=== PATIENT | female | born 1970 | race Caucasian/White ===

== ENCOUNTER 2018-01-09 14:30 | Outpatient (RCR) | payer OTHER, SELFPAY ==
--- NOTE | 2017-12-18 14:30 | PT.OPPOC ---
Current Diagnoses Pain in right knee (12/18/17) Stiffness of right knee, not elsewhere classified (12/18/17) Other abnormalities of gait and mobility (12/18/17) Other tear of lateral meniscus, current injury, right knee, subsequent encounter (12/18/17) Other tear of lateral meniscus, current injury, left knee, initial encounter (12/18/17) Provider Visit Care Team Role Provider Type PHANI Soliz Family Provider Advanced Phlebotomist Medical Lab Assistant Primary Care Provider Specialty: Family Practice Address: [address] [place] [address], [id number] Email: [email or web address] Kevin Fletcher MD Attending Provider Physician Specialty: Orthopedic Surgery Address: [address] [place] [address], [id number] Email: [email or web address] Plan Of Care PT-OP-T Assessment and Plan Start: 12/20/17 12:19 Freq: Status: Active Protocol: Document 12/18/17 14:30 RCC (Rec: 12/20/17 12:51 RCC [email or web address]) Physical Therapy Assessment Rehab Potential Rehabilitation Potential Good Evaluation Complexity Number of Personal Factors/Comorbidities 1-2 Number of Body Systems Impaired 4 or More Clinical Presentation at Evaluation Evolving Impairments Impairments Activity Tolerance Balance Gait Pain ROM Soft Tissue Mobility Strength Goals Seven Impairment Stairs Shelter Goal (LTG) Up/down 12 steps without rail and no deviations/proper body alignment and mechanics. LTG Duration 8 weeks Six Impairment RLE weakness Short Term Goal (STG) 4/5 R hip and knee flexion, 5 /5 R knee extension STG Duration 4 weeks Shelter Goal (LTG) 5/5 knee flexion and extension LTG Duration 8 weeks Five Impairment Single leg balance Short Term Goal (STG) 10 sec. on RLE STG Duration 4 weeks Shelter Goal (LTG) 15 sec on RLE LTG Duration 8 weeks Four Impairment Gait tolerance Short Term Goal (STG) Pt will be able to ambulate outdoors for 15 min, 3 days per week without increased pain to promote a home walking program. STG Duration 4 weeks Production Support Developer Goal (LTG) Pt will be able to ambulate outdoors for 30 min, 5 days per week without increased pain to establish indep. home walking program. LTG Duration 8 weeks Three Impairment R knee pain Short Term Goal (STG) 3/10 or less STG Duration 4 weeks Shelter Goal (LTG) 2/10 or less LTG Duration 8 weeks Two Impairment R knee ROM Short Term Goal (STG) 0-120 degrees STG Duration 4 weeks Production Support Developer Goal (LTG) 0-125 degrees LTG Duration 8 weeks One Impairment Lower Extremity Functional Scale Short Term Goal (STG) 50% or greater STG Duration 4 weeks Shelter Goal (LTG) 70% or greater LTG Duration 8 weeks Assessment Summary Assessment Pt is post-operative week 7 R knee partial lateral meniscectomy and chondroplasty. Pt with increased pain with gait, stairs, prolonged standing, and impaired ROM of the R knee and difficulty with balance on the RLE. Pt is tender throughout the R knee musculature and along the joint line, but with good tolerance to cryotherapy. Due to pt's increased pain with WB , pt may benefit from aquatic therapy as well as land-based therapy and intervention to improve activity tolerance, increase strength, ROM and overall function. Pt is a good candidate for outpatient physical therapy. Physical Therapy Plan Frequency and Duration Frequency of Treatment 2x/Week Duration of Treatment 8 weeks Plan of Care Start Date 12/18/17 Plan of Care End Date 02/12/18 Therapeutic Interventions Therapeutic Interventions Aquatic Therapy Balance Training Gait Training Home Exercise Program Joint Mobilizations Manual Therapy Neuromuscular Re-education Patient/Caregiver Education Self-Care/Home Management Soft Tissue Mobilization Taping Therapeutic Activities Therapeutic Exercises Modalities Cold Pack/Ice Massage Electric Stimulation Hot Packs Infrared Therapy Ultrasound Next Visit Focus/Plan Next Note Type Treatment Note Next Visit Plan advance HEP: SLR if no extensor lag, resisted HS curls, TKE. Open chain R knee strengthening. Plan of Care Dates Plan of Care Start Date 12/18/17 Plan of Care End Date 02/12/18 Please Sign and Return: I have reviewed this Plan of Care and certify that the skilled therapy services above are required to meet the patient?s needs. Physician Signature Date Printed Name and Credentials Clinical Instructor Signature Printed Name and Credentials
--- NOTE | 2017-12-18 14:30 | PT.OIE ---
Current Diagnoses Other tear of lateral meniscus, current injury, left knee, initial encounter (12/18/17) Provider Visit Care Team Role Provider Type PHANI Soliz Family Provider Advanced Felled Seam Operator Chainstitch Primary Care Provider Specialty: Family Practice Address: [address] [place] [address], [id number] Email: [email or web address] Kevin Fletcher MD Attending Provider Physician Specialty: Orthopedic Surgery Address: [address] [place] [address], [id number] Email: [email or web address] Physical Therapy Initial Evaluation PT-OP-A Visit Information Start: 12/20/17 12:19 Freq: Status: Active Protocol: Document 12/18/17 14:30 RCC (Rec: 12/20/17 12:51 RCC [email or web address]) Out-Patient Physical Therapy Visit Information Visit Information Visit Type Initial Evaluation Visit Note 48 visits remaining for 2018 after this evaluation. Visit Start Time 13:45 Visit Stop Time 14:40 Total Visit Minutes 55 Visit Number 1 Number of FLEET DRIVER Visits 0 Evaluation Information Evaluation Date 12/18/17 PT-OP-B Current Condition Start: 12/20/17 12:19 Freq: Status: Active Protocol: Document 12/18/17 14:30 RCC (Rec: 12/20/17 12:51 RCC [email or web address]) Current Condition History of Current Condition Onset Date 10/30/17 Current Complaints R knee pain History of Current Condition Pt is a 47 y/o female presenting to physical therapy with a c/o R knee pain. She is s/p R knee partial lateral meniscectomy and medial femoral condyle chondroplasty on 10/30/2017. Pt with a h/o L knee meniscectomy as well which she reports did very well after surgery. Pt reports that pain was very high for the first 2 weeks post-surgery, with difficulty weight-bearing. Pt did not work for 1.5 weeks post- surgery, used crutches for 1 wk then bracing (OTC hinged brace) for 2 weeks. Pt notes Ibuprofen and ice help decrease pain. Aggravating factors: prolonged standing, going down stairs, long distance ambulation, and sleeping. Pt notes that she has also had some increased R sided low back pain with longer ambulation since her surgery. Orders are for standard knee scope protocol, increase function, ROM, strength, and decrease pain and swelling. Prior Treatments and Tests MRI confirmed lateral meniscus tear of the R knee prior to surgery. Treatment Goals Patient/Caregiver Goals Decrease pain, improve strength and activity tolerance. Prior Functional Status Baseline Function- ADL's Independent Baseline Function- Mobility Independent Baseline Function- Gait community ambulation without device Current Functional Impairments (Reported) Functional Limitations- Mobility/Gait increased pain with gait and prolonged standing- no assistive device or brace being used currently PT-OP-C Subjective Start: 12/20/17 12:19 Freq: Status: Active Protocol: Document 12/18/17 14:30 RCC (Rec: 12/20/17 12:[address] [facility] [email or web address]) OP-PT Subjective Patient Comments Patient Comments Pt notes that her pain and recovery from this knee surgery is much worse than the L knee. Patient Questionnaires Lower Extremity Functional Scale LEFS Score 41.25 OP-PT Pain Assessment Location Right Knee Intensity 5 Scale Used Numeric (1 - 10) Description Aching Sharp Pain Aggravating Factors Activity Standing Walking Stair Climbing Pain Alleviating Factors Cold Other Pain Alleviating Factors Ibuprofen PT-OP-D Balance Start: 12/20/17 12:19 Freq: Status: Active Protocol: Document 12/18/17 14:30 RCC (Rec: 12/20/17 12:[address] [facility] [email or web address]) Balance Tests Single Limb Standing Single Limb- Right 6 sec with increased pain Single Limb- Left 15 sec PT-OP-F Manual Assessment Start: 12/20/17 12:19 Freq: Status: Active Protocol: Document 12/18/17 14:30 RCC (Rec: 12/20/17 12:51 RCC [email or web address]) Manual Assessments Soft Tissue Assessment Soft Tissue Mobility Assessment TTP: R HS, adductors, quadriceps Other Manual Assessments Other Manual Assessments TTP: R knee joint line PT-OP-G Mobility & Gait Start: 12/20/17 12:19 Freq: Status: Active Protocol: Document 12/18/17 14:30 RCC (Rec: 12/20/17 12:51 RCC [email or web address]) OP Gait Assessment Gait Gait Assistance Required: Independent Assistive Devices Assistive Device None Gait Deviations General Gait Pattern Antalgic Decreased Stride Length Factors Limiting Gait Function Factors Limiting Gait Function Decreased Strength Pain Poor Balance Stair Climbing Evaluation Evaluation Level of Assist On Stairs Independent Devices Stair Climbing Assistive Devices Right Railing Technique/Endurance Stair Climbing Direction Ascend and Descend Stair Climbing Technique Step Over Step Number of Steps Climbed 4 Stair Climbing Set # Repetitions (reps) 1 Comments Stair Climbing Comments Increased genu valgus R knee and lateral trunk lean to the R, increased pain with descending. PT-OP-H Neuro Start: 12/20/17 12:19 Freq: Status: Active Protocol: Document 12/18/17 14:30 RCC (Rec: 12/20/17 12:51 RCC [email or web address]) Sensation Evaluation Gross Sensation Gross Sensation WNL PT-OP-K Range of Motion Start: 12/20/17 12:19 Freq: Status: Active Protocol: Document 12/18/17 14:30 RCC (Rec: 12/20/17 12:51 RCC [email or web address]) Knee Goniometric Range of Motion Knee Measured in Degrees Right Patient Position Supine Flexion Active (degrees) 112 Extension Active (degrees) 5 Left Patient Position Supine Flexion Active (degrees) 125 Flexion Passive (degrees) 130 Extension Active (degrees) 0 Knee ROM Limitations Knee ROM Limitations Pain Comments lacking 5 deg. of knee extension on the R. PT-OP-L Special Tests Start: 12/20/17 12:19 Freq: Status: Active Protocol: Document 12/18/17 14:30 RCC (Rec: 12/20/17 12:51 RCC [email or web address]) Special Tests Knee Special Tests Varus- 25 Degrees Test Results negative bilaterally Varus- 0 Degrees Test Results negative bilaterally Valgus- 25 Degrees Test Results negative bilaterally Valgus- 0 Degrees Test Results negative bilaterally PT-OP-M Strength Start: 12/20/17 12:19 Freq: Status: Active Protocol: Document 12/18/17 14:30 RCC (Rec: 12/20/17 12:51 [facility] [email or web address]) Hip Strength Hip Manual Muscle Testing Right Flexion (L2) 4+ Good+ External Rotation 4- Good- Internal Rotation 4 Good Left Flexion (L2) 5 Normal External Rotation 4 Good Internal Rotation 4 Good Knee Strength Knee Manual Muscle Testing Right Flexion (S2) 3+ Fair+ Extension (L3) 4+ Good+ Left Flexion (S2) 5 Normal Extension (L3) 5 Normal Ankle/Foot Strength Ankle and Foot Manual Muscle Testing Right Dorsiflexion (L4) 5 Normal Plantarflexion (S1) 4 Good Left Dorsiflexion (L4) 5 Normal Plantarflexion (S1) 4 Good PT-OP-R Modalities Start: 12/20/17 12:19 Freq: Status: Active Protocol: Document 12/18/17 14:30 RCC (Rec: 12/20/17 12:51 [facility] [email or web address]) Electric Stimulation Electric Stimulation Interferential Current (IFC) Body Location R anterior knee Duration (Minutes) 15 Patient Position Hooklying Combined With Heat/Cold Cold Pack PT-OP-T Assessment and Plan Start: 12/20/17 12:19 Freq: Status: Active Protocol: Document 12/18/17 14:30 RCC (Rec: 12/20/17 12:[address] [facility] [email or web address]) Physical Therapy Assessment Rehab Potential Rehabilitation Potential Good Evaluation Complexity Number of Personal Factors/Comorbidities 1-2 Number of Body Systems Impaired 4 or More Clinical Presentation at Evaluation Evolving Impairments Impairments Activity Tolerance Balance Gait Pain ROM Soft Tissue Mobility Strength Goals Seven Impairment Stairs Tack Puller Goal (LTG) Up/down 12 steps without rail and no deviations/proper body alignment and mechanics. LTG Duration 8 weeks Six Impairment RLE weakness Short Term Goal (STG) 4/5 R hip and knee flexion, 5 /5 R knee extension STG Duration 4 weeks Alf Goal (LTG) 5/5 knee flexion and extension LTG Duration 8 weeks Five Impairment Single leg balance Short Term Goal (STG) 10 sec. on RLE STG Duration 4 weeks Alf Goal (LTG) 15 sec on RLE LTG Duration 8 weeks Four Impairment Gait tolerance Short Term Goal (STG) Pt will be able to ambulate outdoors for 15 min, 3 days per week without increased pain to promote a home walking program. STG Duration 4 weeks Tack Puller Goal (LTG) Pt will be able to ambulate outdoors for 30 min, 5 days per week without increased pain to establish indep. home walking program. LTG Duration 8 weeks Three Impairment R knee pain Short Term Goal (STG) 3/10 or less STG Duration 4 weeks Alf Goal (LTG) 2/10 or less LTG Duration 8 weeks Two Impairment R knee ROM Short Term Goal (STG) 0-120 degrees STG Duration 4 weeks Tack Puller Goal (LTG) 0-125 degrees LTG Duration 8 weeks One Impairment Lower Extremity Functional Scale Short Term Goal (STG) 50% or greater STG Duration 4 weeks Tack Puller Goal (LTG) 70% or greater LTG Duration 8 weeks Assessment Summary Assessment Pt is post-operative week 7 R knee partial lateral meniscectomy and chondroplasty. Pt with increased pain with gait, stairs, prolonged standing, and impaired ROM of the R knee and difficulty with balance on the RLE. Pt is tender throughout the R knee musculature and along the joint line, but with good tolerance to cryotherapy. Due to pt's increased pain with WB , pt may benefit from aquatic therapy as well as land-based therapy and intervention to improve activity tolerance, increase strength, ROM and overall function. Pt is a good candidate for outpatient physical therapy. Physical Therapy Plan Frequency and Duration Frequency of Treatment 2x/Week Duration of Treatment 8 weeks Plan of Care Start Date 12/18/17 Plan of Care End Date 02/12/18 Therapeutic Interventions Therapeutic Interventions Aquatic Therapy Balance Training Gait Training Home Exercise Program Joint Mobilizations Manual Therapy Neuromuscular Re-education Patient/Caregiver Education Self-Care/Home Management Soft Tissue Mobilization Taping Therapeutic Activities Therapeutic Exercises Modalities Cold Pack/Ice Massage Electric Stimulation Hot Packs Infrared Therapy Ultrasound Next Visit Focus/Plan Next Note Type Treatment Note Next Visit Plan advance HEP: SLR if no extensor lag, resisted HS curls, TKE. Open chain R knee strengthening.
--- NOTE | 2017-12-24 15:10 | PT.OTN ---
Current Diagnoses Other tear of lateral meniscus, current injury, left knee, initial encounter (12/24/17) Physical Therapy Treatment Note PT-OP-A Visit Information Start: 12/20/17 12:19 Freq: Status: Active Protocol: Document 12/24/17 15:10 RCC (Rec: 12/24/17 17:18 RCC [email or web address]) Out-Patient Physical Therapy Visit Information Visit Information Visit Type Treatment Note Visit Note 47 visits remaining for 2017 Visit Start Time 14:30 Visit Stop Time 15:10 Total Visit Minutes 40 Visit Number 2 Number of SAW REPAIRER Visits 0 Evaluation Information Evaluation Date 12/18/17 PT-OP-B Current Condition Start: 12/20/17 12:19 Freq: Status: Active Protocol: Document 12/18/17 14:30 RCC (Rec: 12/20/17 12:51 RCC [email or web address]) Current Condition History of Current Condition Onset Date 10/30/17 Current Complaints R knee pain History of Current Condition Pt is a 47 y/o female presenting to physical therapy with a c/o R knee pain. She is s/p R knee partial lateral meniscectomy and medial femoral condyle chondroplasty on 10/30/2017. Pt with a h/o L knee meniscectomy as well which she reports did very well after surgery. Pt reports that pain was very high for the first 2 weeks post-surgery, with difficulty weight-bearing. Pt did not work for 1.5 weeks post- surgery, used crtuches for 1 wk then bracing (OTC hinged brace) for 2 weeks. Pt notes Ibuprofen and ice help decrease pain. Aggravating factors: prolonged standing, going down stairs, long distance ambulation, and sleeping. Pt notes that she has also had some increased R sided low back pain with longer ambulation since her surgery. Orders are for standard knee scope protocol, increase function, ROM, strength, and decrease pain and swelling. Prior Treatments and Tests MRI confirmed lateral meniscus tear of the R knee prior to surgery. Treatment Goals Patient/Caregiver Goals Decrease pain, improve strength and activity tolerance. Prior Functional Status Baseline Function- ADL's Independent Baseline Function- Mobility Independent Baseline Function- Gait community ambulation without device Current Functional Impairments (Reported) Functional Limitations- Mobility/Gait increased pain with gait and prolonged standing- no assistive device or brace being used currently PT-OP-C Subjective Start: 12/20/17 12:19 Freq: Status: Active Protocol: Document 12/24/17 15:10 RCC (Rec: 12/24/17 17:18 RCC [email or web address]) OP-PT Subjective Patient Comments Patient Comments Pt met with Dr. Fletcher, recommended to continue PT. Pt notes pain in the anterolateral knee today. Patient Reported Progress Improving PT-OP-D Balance Start: 12/20/17 12:19 Freq: Status: Active Protocol: Document 12/18/17 14:30 RCC (Rec: 12/20/17 12:51 [facility] [email or web address]) Balance Tests Single Limb Standing Single Limb- Right 6 sec with increased pain Single Limb- Left 15 sec PT-OP-F Manual Assessment Start: 12/20/17 12:19 Freq: Status: Active Protocol: Document 12/18/17 14:30 RCC (Rec: 12/20/17 12:51 [facility] [email or web address]) Manual Assessments Soft Tissue Assessment Soft Tissue Mobility Assessment TTP: R HS, adductors, quadriceps Other Manual Assessments Other Manual Assessments TTP: R knee joint line PT-OP-G Mobility & Gait Start: 12/20/17 12:19 Freq: Status: Active Protocol: Document 12/18/17 14:30 RCC (Rec: 12/20/17 12:51 [facility] [email or web address]) OP Gait Assessment Gait Gait Assistance Required: Independent Assistive Devices Assistive Device None Gait Deviations General Gait Pattern Antalgic Decreased Stride Length Factors Limiting Gait Function Factors Limiting Gait Function Decreased Strength Pain Poor Balance Stair Climbing Evaluation Evaluation Level of Assist On Stairs Independent Devices Stair Climbing Assistive Devices Right Railing Technique/Endurance Stair Climbing Direction Ascend and Descend Stair Climbing Technique Step Over Step Number of Steps Climbed 4 Stair Climbing Set # Repetitions (reps) 1 Comments Stair Climbing Comments Increased genu valgus R knee and lateral trunk lean to the R, increased pain with descending. PT-OP-H Neuro Start: 12/20/17 12:19 Freq: Status: Active Protocol: Document 12/18/17 14:30 RCC (Rec: 12/20/17 12:51 RCC [email or web address]) Sensation Evaluation Gross Sensation Gross Sensation WNL PT-OP-K Range of Motion Start: 12/20/17 12:19 Freq: Status: Active Protocol: Document 12/18/17 14:30 RCC (Rec: 12/20/17 12:51 RCC [email or web address]) Knee Goniometric Range of Motion Knee Measured in Degrees Right Patient Position Supine Flexion Active (degrees) 112 Extension Active (degrees) 5 Left Patient Position Supine Flexion Active (degrees) 125 Flexion Passive (degrees) 130 Extension Active (degrees) 0 Knee ROM Limitations Knee ROM Limitations Pain Comments lacking 5 deg. of knee extension on the R. PT-OP-L Special Tests Start: 12/20/17 12:19 Freq: Status: Active Protocol: Document 12/18/17 14:30 RCC (Rec: 12/20/17 12:51 [facility] [email or web address]) Special Tests Knee Special Tests Varus- 25 Degrees Test Results negative bilaterally Varus- 0 Degrees Test Results negative bilaterally Valgus- 25 Degrees Test Results negative bilaterally Valgus- 0 Degrees Test Results negative bilaterally PT-OP-M Strength Start: 12/20/17 12:19 Freq: Status: Active Protocol: Document 12/18/17 14:30 RCC (Rec: 12/20/17 12:51 [facility] [email or web address]) Hip Strength Hip Manual Muscle Testing Right Flexion (L2) 4+ Good+ External Rotation 4- Good- Internal Rotation 4 Good Left Flexion (L2) 5 Normal External Rotation 4 Good Internal Rotation 4 Good Knee Strength Knee Manual Muscle Testing Right Flexion (S2) 3+ Fair+ Extension (L3) 4+ Good+ Left Flexion (S2) 5 Normal Extension (L3) 5 Normal Ankle/Foot Strength Ankle and Foot Manual Muscle Testing Right Dorsiflexion (L4) 5 Normal Plantarflexion (S1) 4 Good Left Dorsiflexion (L4) 5 Normal Plantarflexion (S1) 4 Good PT-OP-Q Treatments Start: 12/20/17 12:19 Freq: Status: Active Protocol: Document 12/24/17 15:10 RCC (Rec: 12/24/17 17:18 RCC [email or web address]) Cardio Equipment Recumbent Elliptical (MarkTend) Duration (Minutes) 5 Resistance 1 Therapeutic Exercises Supine Exercises 1 Supine Exercise Name knee extension with towel roll under heel Manual Therapy Treatment Soft Tissue Mobilization 2 Body Location R lateral HS Mobilization Type Myofascial Release Intensity/Depth Moderate 1 Body Location R adductors Mobilization Type Myofascial Release Intensity/Depth Moderate Joint Mobilizations 2 Joint R patellofemoral Direction inferior, medial, superior Grade III 1 Joint R tibiofemoral Direction AP femur on tibia Grade IV Body Position Supine PT-OP-R Modalities Start: 12/20/17 12:19 Freq: Status: Active Protocol: Document 12/24/17 15:10 RCC (Rec: 12/24/17 17:18 RCC [email or web address]) Ultrasound Therapy Treatment Right Anterior Lateral Knee Treatment Duration (minutes) 8 Patient Position Hooklying Coupling Medium Ultrasound Gel Applicator Size (cm2) 5 Frequency Setting (mHz) 1 Mode Setting Continuous Intensity Setting (w/cm2) 1.2 PT-OP-T Assessment and Plan Start: 12/20/17 12:19 Freq: Status: Active Protocol: Document 12/24/17 15:10 RCC (Rec: 12/24/17 17:18 [facility] [email or web address]) Physical Therapy Assessment Goals Seven Impairment Stairs Facs Teacher Goal (LTG) Up/down 12 steps without rail and no deviations/proper body alignment and mechanics. LTG Duration 8 weeks Six Impairment RLE weakness Short Term Goal (STG) 4/5 R hip and knee flexion, 5 /5 R knee extension STG Duration 4 weeks Shelter Goal (LTG) 5/5 knee flexion and extension LTG Duration 8 weeks Five Impairment Single leg balance Short Term Goal (STG) 10 sec. on RLE STG Duration 4 weeks Shelter Goal (LTG) 15 sec on RLE LTG Duration 8 weeks Four Impairment Gait tolerance Short Term Goal (STG) Pt will be able to ambulate outdoors for 15 min, 3 days per week without increased pain to promote a home walking program. STG Duration 4 weeks Shelter Goal (LTG) Pt will be able to ambulate outdoors for 30 min, 5 days per week without increased pain to establish indep. home walking program. LTG Duration 8 weeks Three Impairment R knee pain Short Term Goal (STG) 3/10 or less STG Duration 4 weeks Shelter Goal (LTG) 2/10 or less LTG Duration 8 weeks Two Impairment R knee ROM Short Term Goal (STG) 0-120 degrees STG Duration 4 weeks Shelter Goal (LTG) 0-125 degrees LTG Duration 8 weeks One Impairment Lower Extremity Functional Scale Short Term Goal (STG) 50% or greater STG Duration 4 weeks Facs Teacher Goal (LTG) 70% or greater LTG Duration 8 weeks Assessment Summary Assessment Pt still limited in R knee ROM , but improved after manual therapy and working the R knee into extension with gravity- assistance. Pt had tenderness along the anterolateral R knee , but no significant changes in swelling, temperature, color of region. Physical Therapy Plan Frequency and Duration Frequency of Treatment 2x/Week Duration of Treatment 8 weeks Plan of Care Start Date 12/18/17 Plan of Care End Date 02/12/18 Next Visit Focus/Plan Next Note Type Treatment Note Next Visit Plan advance HEP: SLR if no extensor lag, resisted HS curls, TKE. Open chain R knee strengthening.
--- NOTE | 2017-12-26 15:15 | PT.OTN ---
Current Diagnoses Other tear of lateral meniscus, current injury, left knee, initial encounter (12/26/17) Physical Therapy Treatment Note PT-OP-A Visit Information Start: 12/20/17 12:19 Freq: Status: Active Protocol: Document 12/26/17 15:15 RCC (Rec: 12/28/17 17:13 [facility] [email or web address]) Out-Patient Physical Therapy Visit Information Visit Information Visit Type Treatment Note Visit Start Time 14:30 Visit Stop Time 15:15 Total Visit Minutes 45 Visit Number 3 Number of PRACTICAL NURSING FACULTY Visits 0 Evaluation Information Evaluation Date 12/18/17 PT-OP-B Current Condition Start: 12/20/17 12:19 Freq: Status: Active Protocol: Document 12/18/17 14:30 RCC (Rec: 12/20/17 12:51 [facility] [email or web address]) Current Condition History of Current Condition Onset Date 10/30/17 Current Complaints R knee pain History of Current Condition Pt is a 47 y/o female presenting to physical therapy with a c/o R knee pain. She is s/p R knee partial lateral meniscectomy and medial femoral condyle chondroplasty on 10/30/2017. Pt with a h/o L knee meniscectomy as well which she reports did very well after surgery. Pt reports that pain was very high for the first 2 weeks post-surgery, with difficulty weight-bearing. Pt did not work for 1.5 weeks post- surgery, used crtuches for 1 wk then bracing ([facility] hinged brace) for 2 weeks. Pt notes Ibuprofen and ice help decrease pain. Aggravating factors: prolonged standing, going down stairs, long distance ambulation, and sleeping. Pt notes that she has also had some increased R sided low back pain with longer ambulation since her surgery. Orders are for standard knee scope protocol, increase function, ROM, strength, and decrease pain and swelling. Prior Treatments and Tests MRI confirmed lateral meniscus tear of the R knee prior to surgery. Treatment Goals Patient/Caregiver Goals Decrease pain, improve strength and activity tolerance. Prior Functional Status Baseline Function- ADL's Independent Baseline Function- Mobility Independent Baseline Function- Gait community ambulation without device Current Functional Impairments (Reported) Functional Limitations- Mobility/Gait increased pain with gait and prolonged standing- no assistive device or brace being used currently PT-OP-C Subjective Start: 12/20/17 12:19 Freq: Status: Active Protocol: Document 12/26/17 15:15 RCC (Rec: 12/28/17 17:13 RCC [email or web address]) OP-PT Subjective Patient Comments Patient Comments Pt notes she was a little sore but her knee is doing better today. Patient Reported Progress Improving PT-OP-D Balance Start: 12/20/17 12:19 Freq: Status: Active Protocol: Document 12/18/17 14:30 RCC (Rec: 12/20/17 12:51 RCC [email or web address]) Balance Tests Single Limb Standing Single Limb- Right 6 sec with increased pain Single Limb- Left 15 sec PT-OP-F Manual Assessment Start: 12/20/17 12:19 Freq: Status: Active Protocol: Document 12/18/17 14:30 RCC (Rec: 12/20/17 12:51 RCC [email or web address]) Manual Assessments Soft Tissue Assessment Soft Tissue Mobility Assessment TTP: R HS, adductors, quadriceps Other Manual Assessments Other Manual Assessments TTP: R knee joint line PT-OP-G Mobility & Gait Start: 12/20/17 12:19 Freq: Status: Active Protocol: Document 12/18/17 14:30 RCC (Rec: 12/20/17 12:51 RCC [email or web address]) OP Gait Assessment Gait Gait Assistance Required: Independent Assistive Devices Assistive Device None Gait Deviations General Gait Pattern Antalgic Decreased Stride Length Factors Limiting Gait Function Factors Limiting Gait Function Decreased Strength Pain Poor Balance Stair Climbing Evaluation Evaluation Level of Assist On Stairs Independent Devices Stair Climbing Assistive Devices Right Railing Technique/Endurance Stair Climbing Direction Ascend and Descend Stair Climbing Technique Step Over Step Number of Steps Climbed 4 Stair Climbing Set # Repetitions (reps) 1 Comments Stair Climbing Comments Increased genu valgus R knee and lateral trunk lean to the R, increased pain with descending. PT-OP-H Neuro Start: 12/20/17 12:19 Freq: Status: Active Protocol: Document 12/18/17 14:30 RCC (Rec: 12/20/17 12:51 RCC [email or web address]) Sensation Evaluation Gross Sensation Gross Sensation WNL PT-OP-K Range of Motion Start: 12/20/17 12:19 Freq: Status: Active Protocol: Document 12/18/17 14:30 RCC (Rec: 12/20/17 12:51 RCC [email or web address]) Knee Goniometric Range of Motion Knee Measured in Degrees Right Patient Position Supine Flexion Active (degrees) 112 Extension Active (degrees) 5 Left Patient Position Supine Flexion Active (degrees) 125 Flexion Passive (degrees) 130 Extension Active (degrees) 0 Knee ROM Limitations Knee ROM Limitations Pain Comments lacking 5 deg. of knee extension on the R. PT-OP-L Special Tests Start: 12/20/17 12:19 Freq: Status: Active Protocol: Document 12/18/17 14:30 RCC (Rec: 12/20/17 12:51 RCC [email or web address]) Special Tests Knee Special Tests Varus- 25 Degrees Test Results negative bilaterally Varus- 0 Degrees Test Results negative bilaterally Valgus- 25 Degrees Test Results negative bilaterally Valgus- 0 Degrees Test Results negative bilaterally PT-OP-M Strength Start: 12/20/17 12:19 Freq: Status: Active Protocol: Document 12/18/17 14:30 RCC (Rec: 12/20/17 12:51 [facility] [email or web address]) Hip Strength Hip Manual Muscle Testing Right Flexion (L2) 4+ Good+ External Rotation 4- Good- Internal Rotation 4 Good Left Flexion (L2) 5 Normal External Rotation 4 Good Internal Rotation 4 Good Knee Strength Knee Manual Muscle Testing Right Flexion (S2) 3+ Fair+ Extension (L3) 4+ Good+ Left Flexion (S2) 5 Normal Extension (L3) 5 Normal Ankle/Foot Strength Ankle and Foot Manual Muscle Testing Right Dorsiflexion (L4) 5 Normal Plantarflexion (S1) 4 Good Left Dorsiflexion (L4) 5 Normal Plantarflexion (S1) 4 Good PT-OP-Q Treatments Start: 12/20/17 12:19 Freq: Status: Active Protocol: Document 12/26/17 15:15 RCC (Rec: 12/28/17 17:13 RCC [email or web address]) Cardio Equipment Recumbent Elliptical (Biodex) Duration (Minutes) 6 Resistance 1 Gym Equipment Cable Column (Body Solid) Leg Curl Resistance 3 plates B, 2 plate U Reps/Time 15 reps each Therapeutic Exercises Standing Exercises 4 Standing Exercise Name hip adductor stretch Side bilateral 3 Standing Exercise Name HS stretch Side bilateral Equipment Used stairs 2 Standing Exercise Name gastroc stretch Side bilateral Equipment Used DAVE 1 Standing Exercise Name heel raises Side bilateral Reps/Minutes 2x10 Manual Therapy Treatment Joint Mobilizations 2 Joint R patellofemoral Direction inferior, medial, superior Grade III 1 Joint R tibiofemoral Direction AP femur on tibia Grade IV Body Position Supine PT-OP-R Modalities Start: 12/20/17 12:19 Freq: Status: Active Protocol: Document 12/26/17 15:15 RCC (Rec: 12/28/17 17:13 RCC [email or web address]) Ultrasound Therapy Treatment Right Anterior Lateral Knee Treatment Duration (minutes) 8 Patient Position Hooklying Coupling Medium Ultrasound Gel Applicator Size (cm2) 5 Frequency Setting (mHz) 1 Mode Setting Continuous Intensity Setting (w/cm2) 1.2 PT-OP-T Assessment and Plan Start: 12/20/17 12:19 Freq: Status: Active Protocol: Document 12/26/17 15:15 RCC (Rec: 12/28/17 17:13 RCC [email or web address]) Physical Therapy Assessment Goals Seven Impairment Stairs Mcfp Goal (LTG) Up/down 12 steps without rail and no deviations/proper body alignment and mechanics. LTG Duration 8 weeks Six Impairment RLE weakness Short Term Goal (STG) 4/5 R hip and knee flexion, 5 /5 R knee extension STG Duration 4 weeks Putty Maker Goal (LTG) 5/5 knee flexion and extension LTG Duration 8 weeks Five Impairment Single leg balance Short Term Goal (STG) 10 sec. on RLE STG Duration 4 weeks Putty Maker Goal (LTG) 15 sec on RLE LTG Duration 8 weeks Four Impairment Gait tolerance Short Term Goal (STG) Pt will be able to ambulate outdoors for 15 min, 3 days per week without increased pain to promote a home walking program. STG Duration 4 weeks Mcfp Goal (LTG) Pt will be able to ambulate outdoors for 30 min, 5 days per week without increased pain to establish indep. home walking program. LTG Duration 8 weeks Three Impairment R knee pain Short Term Goal (STG) 3/10 or less STG Duration 4 weeks Putty Maker Goal (LTG) 2/10 or less LTG Duration 8 weeks Two Impairment R knee ROM Short Term Goal (STG) 0-120 degrees STG Duration 4 weeks Putty Maker Goal (LTG) 0-125 degrees LTG Duration 8 weeks One Impairment Lower Extremity Functional Scale Short Term Goal (STG) 50% or greater STG Duration 4 weeks Putty Maker Goal (LTG) 70% or greater LTG Duration 8 weeks Assessment Summary Assessment Pt with improved activity tolerance to resisted strengthening, and overall tolerated treatment well without c/o pain. R knee extension is improving, and responds well to joint mobilizations. Physical Therapy Plan Frequency and Duration Frequency of Treatment 2x/Week Duration of Treatment 8 weeks Plan of Care Start Date 12/18/17 Plan of Care End Date 02/12/18 Next Visit Focus/Plan Next Note Type Treatment Note Next Visit Plan continue R knee ROM and strengthening activities as tolerated.
--- NOTE | 2018-01-02 09:43 | PT.OTN ---
Current Diagnoses Other tear of lateral meniscus, current injury, left knee, initial encounter (01/02/18) Physical Therapy Treatment Note PT-OP-A Visit Information Start: 12/20/17 12:19 Freq: Status: Active Protocol: Document 01/02/18 09:43 RCC (Rec: 01/02/18 09:48 RCC [email or web address]) Out-Patient Physical Therapy Visit Information Visit Information Visit Type Treatment Note Visit Start Time 09:00 Visit Stop Time 09:43 Total Visit Minutes 43 Visit Number 4 Number of SAILING INSTRUCTOR Visits 0 Evaluation Information Evaluation Date 12/18/17 PT-OP-B Current Condition Start: 12/20/17 12:19 Freq: Status: Active Protocol: Document 12/18/17 14:30 RCC (Rec: 12/20/17 12:51 RCC [email or web address]) Current Condition History of Current Condition Onset Date 10/30/17 Current Complaints R knee pain History of Current Condition Pt is a 47 y/o female presenting to physical therapy with a c/o R knee pain. She is s/p R knee partial lateral meniscectomy and medial femoral condyle chondroplasty on 10/30/2017. Pt with a h/o L knee meniscectomy as well which she reports did very well after surgery. Pt reports that pain was very high for the first 2 weeks post-surgery, with difficulty weight-bearing. Pt did not work for 1.5 weeks post- surgery, used crtuches for 1 wk then bracing ([facility] hinged brace) for 2 weeks. Pt notes Ibuprofen and ice help decrease pain. Aggravating factors: prolonged standing, going down stairs, long distance ambulation, and sleeping. Pt notes that she has also had some increased R sided low back pain with longer ambulation since her surgery. Orders are for standard knee scope protocol, increase function, ROM, strength, and decrease pain and swelling. Prior Treatments and Tests MRI confirmed lateral meniscus tear of the R knee prior to surgery. Treatment Goals Patient/Caregiver Goals Decrease pain, improve strength and activity tolerance. Prior Functional Status Baseline Function- ADL's Independent Baseline Function- Mobility Independent Baseline Function- Gait community ambulation without device Current Functional Impairments (Reported) Functional Limitations- Mobility/Gait increased pain with gait and prolonged standing- no assistive device or brace being used currently PT-OP-C Subjective Start: 12/20/17 12:19 Freq: Status: Active Protocol: Document 01/02/18 09:43 RCC (Rec: 01/02/18 09:48 RCC [email or web address]) OP-PT Subjective Patient Comments Patient Comments Pt states pain is less in the R knee and feels a little stronger. PT-OP-D Balance Start: 12/20/17 12:19 Freq: Status: Active Protocol: Document 12/18/17 14:30 RCC (Rec: 12/20/17 12:51 RCC [email or web address]) Balance Tests Single Limb Standing Single Limb- Right 6 sec with increased pain Single Limb- Left 15 sec PT-OP-F Manual Assessment Start: 12/20/17 12:19 Freq: Status: Active Protocol: Document 12/18/17 14:30 RCC (Rec: 12/20/17 12:51 RCC [email or web address]) Manual Assessments Soft Tissue Assessment Soft Tissue Mobility Assessment TTP: R HS, adductors, quadriceps Other Manual Assessments Other Manual Assessments TTP: R knee joint line PT-OP-G Mobility & Gait Start: 12/20/17 12:19 Freq: Status: Active Protocol: Document 12/18/17 14:30 RCC (Rec: 12/20/17 12:51 RCC [email or web address]) OP Gait Assessment Gait Gait Assistance Required: Independent Assistive Devices Assistive Device None Gait Deviations General Gait Pattern Antalgic Decreased Stride Length Factors Limiting Gait Function Factors Limiting Gait Function Decreased Strength Pain Poor Balance Stair Climbing Evaluation Evaluation Level of Assist On Stairs Independent Devices Stair Climbing Assistive Devices Right Railing Technique/Endurance Stair Climbing Direction Ascend and Descend Stair Climbing Technique Step Over Step Number of Steps Climbed 4 Stair Climbing Set # Repetitions (reps) 1 Comments Stair Climbing Comments Increased genu valgus R knee and lateral trunk lean to the R, increased pain with descending. PT-OP-H Neuro Start: 12/20/17 12:19 Freq: Status: Active Protocol: Document 12/18/17 14:30 RCC (Rec: 12/20/17 12:51 RCC [email or web address]) Sensation Evaluation Gross Sensation Gross Sensation WNL PT-OP-K Range of Motion Start: 12/20/17 12:19 Freq: Status: Active Protocol: Document 12/18/17 14:30 RCC (Rec: 12/20/17 12:51 RCC [email or web address]) Knee Goniometric Range of Motion Knee Measured in Degrees Right Patient Position Supine Flexion Active (degrees) 112 Extension Active (degrees) 5 Left Patient Position Supine Flexion Active (degrees) 125 Flexion Passive (degrees) 130 Extension Active (degrees) 0 Knee ROM Limitations Knee ROM Limitations Pain Comments lacking 5 deg. of knee extension on the R. PT-OP-L Special Tests Start: 12/20/17 12:19 Freq: Status: Active Protocol: Document 12/18/17 14:30 RCC (Rec: 12/20/17 12:51 [facility] [email or web address]) Special Tests Knee Special Tests Varus- 25 Degrees Test Results negative bilaterally Varus- 0 Degrees Test Results negative bilaterally Valgus- 25 Degrees Test Results negative bilaterally Valgus- 0 Degrees Test Results negative bilaterally PT-OP-M Strength Start: 12/20/17 12:19 Freq: Status: Active Protocol: Document 12/18/17 14:30 RCC (Rec: 12/20/17 12:51 [facility] [email or web address]) Hip Strength Hip Manual Muscle Testing Right Flexion (L2) 4+ Good+ External Rotation 4- Good- Internal Rotation 4 Good Left Flexion (L2) 5 Normal External Rotation 4 Good Internal Rotation 4 Good Knee Strength Knee Manual Muscle Testing Right Flexion (S2) 3+ Fair+ Extension (L3) 4+ Good+ Left Flexion (S2) 5 Normal Extension (L3) 5 Normal Ankle/Foot Strength Ankle and Foot Manual Muscle Testing Right Dorsiflexion (L4) 5 Normal Plantarflexion (S1) 4 Good Left Dorsiflexion (L4) 5 Normal Plantarflexion (S1) 4 Good PT-OP-Q Treatments Start: 12/20/17 12:19 Freq: Status: Active Protocol: Document 01/02/18 09:43 RCC (Rec: 01/02/18 09:48 RCC [email or web address]) Gym Equipment Cable Column (Body Solid) Leg Extension Resistance 3 plates B Reps/Time 2x12 Leg Curl Resistance 3 plates B, 2 plate U Reps/Time 15 reps each Shuttle Recovery Unilateral Squats Resistance 50 Shuttle Recovery Platform Stable Reps/Time to fatigue Bilateral Squats Resistance 87 Shuttle Recovery Platform Stable Reps/Time to fatigue Therapeutic Exercises Supine Exercises 1 Supine Exercise Name knee extension with towel roll under heel Standing Exercises 5 Standing Exercise Name lateral walks Side bilateral Resistance yellow Reps/Minutes 2 laps 3 Standing Exercise Name HS stretch Side bilateral Equipment Used stairs 2 Standing Exercise Name gastroc stretch Side bilateral Equipment Used DAVE Manual Therapy Treatment Joint Mobilizations 2 Joint R patellofemoral Direction inferior, medial, superior Grade III 1 Joint R tibiofemoral Direction AP femur on tibia Grade IV Body Position Supine PT-OP-R Modalities Start: 12/20/17 12:19 Freq: Status: Active Protocol: Document 01/02/18 09:43 [facility] (Rec: 01/02/18 09:48 [facility] [email or web address]) Ultrasound Therapy Treatment Right Anterior Lateral Knee Treatment Duration (minutes) 8 Patient Position Hooklying Coupling Medium Ultrasound Gel Applicator Size (cm2) 5 Frequency Setting (mHz) 1 Mode Setting Continuous Intensity Setting (w/cm2) 1.2 PT-OP-T Assessment and Plan Start: 12/20/17 12:19 Freq: Status: Active Protocol: Document 01/02/18 09:43 [facility] (Rec: 01/02/18 09:48 [facility] [email or web address]) Physical Therapy Assessment Assessment Summary Assessment Pt with improved R knee extension during gait, and increased tolerance to activity this session. Pt still with antalgic gait, but lessening. Physical Therapy Plan Frequency and Duration Frequency of Treatment 2x/Week Duration of Treatment 8 weeks Plan of Care Start Date 12/18/17 Plan of Care End Date 02/12/18 Next Visit Focus/Plan Next Note Type Treatment Note Next Visit Plan continue R knee ROM and strengthening activities as tolerated.
--- NOTE | 2018-01-07 15:14 | PT.OTN ---
Current Diagnoses Other tear of lateral meniscus, current injury, left knee, initial encounter (01/07/18) Physical Therapy Treatment Note PT-OP-A Visit Information Start: 12/20/17 12:19 Freq: Status: Active Protocol: Document 01/07/18 15:14 RCC (Rec: 01/07/18 17:58 [facility] [email or web address]) Out-Patient Physical Therapy Visit Information Visit Information Visit Type Treatment Note Visit Start Time 14:34 Visit Stop Time 15:14 Total Visit Minutes 40 Visit Number 5 Number of STITCH RUBBER Visits 0 Evaluation Information Evaluation Date 12/18/17 PT-OP-B Current Condition Start: 12/20/17 12:19 Freq: Status: Active Protocol: Document 12/18/17 14:30 RCC (Rec: 12/20/17 12:51 RCC [email or web address]) Current Condition History of Current Condition Onset Date 10/30/17 Current Complaints R knee pain History of Current Condition Pt is a 47 y/o female presenting to physical therapy with a c/o R knee pain. She is s/p R knee partial lateral meniscectomy and medial femoral condyle chondroplasty on 10/30/2017. Pt with a h/o L knee meniscectomy as well which she reports did very well after surgery. Pt reports that pain was very high for the first 2 weeks post-surgery, with difficulty weight-bearing. Pt did not work for 1.5 weeks post- surgery, used crtuches for 1 wk then bracing ([facility] hinged brace) for 2 weeks. Pt notes Ibuprofen and ice help decrease pain. Aggravating factors: prolonged standing, going down stairs, long distance ambulation, and sleeping. Pt notes that she has also had some increased R sided low back pain with longer ambulation since her surgery. Orders are for standard knee scope protocol, increase function, ROM, strength, and decrease pain and swelling. Prior Treatments and Tests MRI confirmed lateral meniscus tear of the R knee prior to surgery. Treatment Goals Patient/Caregiver Goals Decrease pain, improve strength and activity tolerance. Prior Functional Status Baseline Function- ADL's Independent Baseline Function- Mobility Independent Baseline Function- Gait community ambulation without device Current Functional Impairments (Reported) Functional Limitations- Mobility/Gait increased pain with gait and prolonged standing- no assistive device or brace being used currently PT-OP-C Subjective Start: 12/20/17 12:19 Freq: Status: Active Protocol: Document 01/07/18 15:14 RCC (Rec: 01/07/18 17:58 RCC [email or web address]) OP-PT Subjective Patient Comments Patient Comments Pt notes that her R knee locked up on her earlier today while walking for a brief moment, but then released. PT-OP-D Balance Start: 12/20/17 12:19 Freq: Status: Active Protocol: Document 12/18/17 14:30 RCC (Rec: 12/20/17 12:51 RCC [email or web address]) Balance Tests Single Limb Standing Single Limb- Right 6 sec with increased pain Single Limb- Left 15 sec PT-OP-F Manual Assessment Start: 12/20/17 12:19 Freq: Status: Active Protocol: Document 12/18/17 14:30 RCC (Rec: 12/20/17 12:51 RCC [email or web address]) Manual Assessments Soft Tissue Assessment Soft Tissue Mobility Assessment TTP: R HS, adductors, quadriceps Other Manual Assessments Other Manual Assessments TTP: R knee joint line PT-OP-G Mobility & Gait Start: 12/20/17 12:19 Freq: Status: Active Protocol: Document 12/18/17 14:30 RCC (Rec: 12/20/17 12:51 RCC [email or web address]) OP Gait Assessment Gait Gait Assistance Required: Independent Assistive Devices Assistive Device None Gait Deviations General Gait Pattern Antalgic Decreased Stride Length Factors Limiting Gait Function Factors Limiting Gait Function Decreased Strength Pain Poor Balance Stair Climbing Evaluation Evaluation Level of Assist On Stairs Independent Devices Stair Climbing Assistive Devices Right Railing Technique/Endurance Stair Climbing Direction Ascend and Descend Stair Climbing Technique Step Over Step Number of Steps Climbed 4 Stair Climbing Set # Repetitions (reps) 1 Comments Stair Climbing Comments Increased genu valgus R knee and lateral trunk lean to the R, increased pain with descending. PT-OP-H Neuro Start: 12/20/17 12:19 Freq: Status: Active Protocol: Document 12/18/17 14:30 RCC (Rec: 12/20/17 12:51 RCC [email or web address]) Sensation Evaluation Gross Sensation Gross Sensation WNL PT-OP-J Posture/Palpation/Skin Start: 12/20/17 12:19 Freq: Status: Active Protocol: Document 01/07/18 15:14 RCC (Rec: 01/07/18 17:58 RCC [email or web address]) Skin Assessment Other Assessments Skin Assessment Comments mild swelling R anterior knee @ joint line. PT-OP-K Range of Motion Start: 12/20/17 12:19 Freq: Status: Active Protocol: Document 12/18/17 14:30 RCC (Rec: 12/20/17 12:51 RCC [email or web address]) Knee Goniometric Range of Motion Knee Measured in Degrees Right Patient Position Supine Flexion Active (degrees) 112 Extension Active (degrees) 5 Left Patient Position Supine Flexion Active (degrees) 125 Flexion Passive (degrees) 130 Extension Active (degrees) 0 Knee ROM Limitations Knee ROM Limitations Pain Comments lacking 5 deg. of knee extension on the R. PT-OP-L Special Tests Start: 12/20/17 12:19 Freq: Status: Active Protocol: Document 12/18/17 14:30 RCC (Rec: 12/20/17 12:51 RCC [email or web address]) Special Tests Knee Special Tests Varus- 25 Degrees Test Results negative bilaterally Varus- 0 Degrees Test Results negative bilaterally Valgus- 25 Degrees Test Results negative bilaterally Valgus- 0 Degrees Test Results negative bilaterally PT-OP-M Strength Start: 12/20/17 12:19 Freq: Status: Active Protocol: Document 12/18/17 14:30 RCC (Rec: 12/20/17 12:51 RCC [email or web address]) Hip Strength Hip Manual Muscle Testing Right Flexion (L2) 4+ Good+ External Rotation 4- Good- Internal Rotation 4 Good Left Flexion (L2) 5 Normal External Rotation 4 Good Internal Rotation 4 Good Knee Strength Knee Manual Muscle Testing Right Flexion (S2) 3+ Fair+ Extension (L3) 4+ Good+ Left Flexion (S2) 5 Normal Extension (L3) 5 Normal Ankle/Foot Strength Ankle and Foot Manual Muscle Testing Right Dorsiflexion (L4) 5 Normal Plantarflexion (S1) 4 Good Left Dorsiflexion (L4) 5 Normal Plantarflexion (S1) 4 Good PT-OP-Q Treatments Start: 12/20/17 12:19 Freq: Status: Active Protocol: Document 01/07/18 15:14 RCC (Rec: 01/07/18 17:58 RCC [email or web address]) Gym Equipment Cable Column (Body Solid) Leg Extension Resistance 4 plates B Reps/Time 2x12 Leg Curl Resistance 3 plates B, 2 plate U Reps/Time 15 reps each Shuttle Recovery Unilateral Squats Resistance 62 Shuttle Recovery Platform Stable Reps/Time to fatigue Bilateral Squats Resistance 87 Shuttle Recovery Platform Stable Reps/Time to fatigue Therapeutic Exercises Standing Exercises 6 Standing Exercise Name quad stretch Side bilateral Equipment Used stairs 3 Standing Exercise Name HS stretch Side bilateral Equipment Used stairs 2 Standing Exercise Name gastroc stretch Side bilateral Equipment Used DAVE Manual Therapy Treatment Joint Mobilizations 1 Joint R tibiofemoral Direction AP femur on tibia Grade IV Body Position Supine PT-OP-R Modalities Start: 12/20/17 12:19 Freq: Status: Active Protocol: Document 01/07/18 15:14 RCC (Rec: 01/07/18 17:58 [facility] [email or web address]) Ultrasound Therapy Treatment Right Anterior Lateral Knee Treatment Duration (minutes) 8 Patient Position Hooklying Coupling Medium Ultrasound Gel Applicator Size (cm2) 5 Frequency Setting (mHz) 1 Mode Setting Continuous Intensity Setting (w/cm2) 1.2 PT-OP-T Assessment and Plan Start: 12/20/17 12:19 Freq: Status: Active Protocol: Document 01/07/18 15:14 [facility] (Rec: 01/07/18 17:58 [place] [id number]) Physical Therapy Assessment Assessment Summary Assessment Pt with mild swelling and slight R knee flexed position at rest, but able to achive full extension after manual therapy. Resistance was increased on knee extension, and tolerated without c/o pain . Physical Therapy Plan Frequency and Duration Frequency of Treatment 2x/Week Duration of Treatment 8 weeks Plan of Care Start Date 12/18/17 Plan of Care End Date 02/12/18 Next Visit Focus/Plan Next Note Type Treatment Note Next Visit Plan R knee strengthening and stabilization.
--- NOTE | 2018-01-09 15:25 | PT.OTN ---
Current Diagnoses Other tear of lateral meniscus, current injury, left knee, initial encounter (01/09/18) Physical Therapy Treatment Note PT-OP-A Visit Information Start: 12/20/17 12:19 Freq: Status: Active Protocol: Document 01/09/18 15:25 RCC (Rec: 01/11/18 16:47 RCC [email or web address]) Out-Patient Physical Therapy Visit Information Visit Information Visit Type Treatment Note Visit Start Time 14:30 Visit Stop Time 15:25 Total Visit Minutes 55 Visit Number 6 Number of VENDING MACHINE SERVICER Visits 0 Evaluation Information Evaluation Date 12/18/17 PT-OP-B Current Condition Start: 12/20/17 12:19 Freq: Status: Active Protocol: Document 12/18/17 14:30 RCC (Rec: 12/20/17 12:51 RCC [email or web address]) Current Condition History of Current Condition Onset Date 10/30/17 Current Complaints R knee pain History of Current Condition Pt is a 47 y/o female presenting to physical therapy with a c/o R knee pain. She is s/p R knee partial lateral meniscectomy and medial femoral condyle chondroplasty on 10/30/2017. Pt with a h/o L knee meniscectomy as well which she reports did very well after surgery. Pt reports that pain was very high for the first 2 weeks post-surgery, with difficulty weight-bearing. Pt did not work for 1.5 weeks post- surgery, used crtuches for 1 wk then bracing ([facility] hinged brace) for 2 weeks. Pt notes Ibuprofen and ice help decrease pain. Aggravating factors: prolonged standing, going down stairs, long distance ambulation, and sleeping. Pt notes that she has also had some increased R sided low back pain with longer ambulation since her surgery. Orders are for standard knee scope protocol, increase function, ROM, strength, and decrease pain and swelling. Prior Treatments and Tests MRI confirmed lateral meniscus tear of the R knee prior to surgery. Treatment Goals Patient/Caregiver Goals Decrease pain, improve strength and activity tolerance. Prior Functional Status Baseline Function- ADL's Independent Baseline Function- Mobility Independent Baseline Function- Gait community ambulation without device Current Functional Impairments (Reported) Functional Limitations- Mobility/Gait increased pain with gait and prolonged standing- no assistive device or brace being used currently PT-OP-C Subjective Start: 12/20/17 12:19 Freq: Status: Active Protocol: Document 01/09/18 15:25 RCC (Rec: 01/11/18 16:47 RCC [email or web address]) OP-PT Subjective Patient Comments Patient Comments Pt notes no locking in knee, but a little stiff today. PT-OP-D Balance Start: 12/20/17 12:19 Freq: Status: Active Protocol: Document 12/18/17 14:30 RCC (Rec: 12/20/17 12:51 RCC [email or web address]) Balance Tests Single Limb Standing Single Limb- Right 6 sec with increased pain Single Limb- Left 15 sec PT-OP-F Manual Assessment Start: 12/20/17 12:19 Freq: Status: Active Protocol: Document 12/18/17 14:30 RCC (Rec: 12/20/17 12:51 RCC [email or web address]) Manual Assessments Soft Tissue Assessment Soft Tissue Mobility Assessment TTP: R HS, adductors, quadriceps Other Manual Assessments Other Manual Assessments TTP: R knee joint line PT-OP-G Mobility & Gait Start: 12/20/17 12:19 Freq: Status: Active Protocol: Document 12/18/17 14:30 RCC (Rec: 12/20/17 12:51 RCC [email or web address]) OP Gait Assessment Gait Gait Assistance Required: Independent Assistive Devices Assistive Device None Gait Deviations General Gait Pattern Antalgic Decreased Stride Length Factors Limiting Gait Function Factors Limiting Gait Function Decreased Strength Pain Poor Balance Stair Climbing Evaluation Evaluation Level of Assist On Stairs Independent Devices Stair Climbing Assistive Devices Right Railing Technique/Endurance Stair Climbing Direction Ascend and Descend Stair Climbing Technique Step Over Step Number of Steps Climbed 4 Stair Climbing Set # Repetitions (reps) 1 Comments Stair Climbing Comments Increased genu valgus R knee and lateral trunk lean to the R, increased pain with descending. PT-OP-H Neuro Start: 12/20/17 12:19 Freq: Status: Active Protocol: Document 12/18/17 14:30 RCC (Rec: 12/20/17 12:51 RCC [email or web address]) Sensation Evaluation Gross Sensation Gross Sensation WNL PT-OP-J Posture/Palpation/Skin Start: 12/20/17 12:19 Freq: Status: Active Protocol: Document 01/07/18 15:14 RCC (Rec: 01/07/18 17:58 RCC [email or web address]) Skin Assessment Other Assessments Skin Assessment Comments mild swelling R anterior knee @ joint line. PT-OP-K Range of Motion Start: 12/20/17 12:19 Freq: Status: Active Protocol: Document 12/18/17 14:30 RCC (Rec: 12/20/17 12:51 RCC [email or web address]) Knee Goniometric Range of Motion Knee Measured in Degrees Right Patient Position Supine Flexion Active (degrees) 112 Extension Active (degrees) 5 Left Patient Position Supine Flexion Active (degrees) 125 Flexion Passive (degrees) 130 Extension Active (degrees) 0 Knee ROM Limitations Knee ROM Limitations Pain Comments lacking 5 deg. of knee extension on the R. PT-OP-L Special Tests Start: 12/20/17 12:19 Freq: Status: Active Protocol: Document 12/18/17 14:30 RCC (Rec: 12/20/17 12:51 RCC [email or web address]) Special Tests Knee Special Tests Varus- 25 Degrees Test Results negative bilaterally Varus- 0 Degrees Test Results negative bilaterally Valgus- 25 Degrees Test Results negative bilaterally Valgus- 0 Degrees Test Results negative bilaterally PT-OP-M Strength Start: 12/20/17 12:19 Freq: Status: Active Protocol: Document 12/18/17 14:30 RCC (Rec: 12/20/17 12:51 RCC [email or web address]) Hip Strength Hip Manual Muscle Testing Right Flexion (L2) 4+ Good+ External Rotation 4- Good- Internal Rotation 4 Good Left Flexion (L2) 5 Normal External Rotation 4 Good Internal Rotation 4 Good Knee Strength Knee Manual Muscle Testing Right Flexion (S2) 3+ Fair+ Extension (L3) 4+ Good+ Left Flexion (S2) 5 Normal Extension (L3) 5 Normal Ankle/Foot Strength Ankle and Foot Manual Muscle Testing Right Dorsiflexion (L4) 5 Normal Plantarflexion (S1) 4 Good Left Dorsiflexion (L4) 5 Normal Plantarflexion (S1) 4 Good PT-OP-Q Treatments Start: 12/20/17 12:19 Freq: Status: Active Protocol: Document 01/09/18 15:25 RCC (Rec: 01/11/18 16:47 RCC [email or web address]) Gym Equipment Cable Column (Body Solid) Leg Extension Resistance 4 plates B, 3 plates U Reps/Time 15 each Leg Curl Resistance 3 plates B, 2 plate U Reps/Time 15 reps each Shuttle Recovery Unilateral Squats Resistance 62 Shuttle Recovery Platform Stable Reps/Time to fatigue Bilateral Squats Resistance 87 Shuttle Recovery Platform Stable Reps/Time to fatigue Therapeutic Exercises Standing Exercises 6 Standing Exercise Name quad stretch Side bilateral Equipment Used stairs 3 Standing Exercise Name HS stretch Side bilateral Equipment Used stairs 2 Standing Exercise Name gastroc stretch Side bilateral Equipment Used DAVE 1 Standing Exercise Name heel raises Side bilateral Reps/Minutes 2x10 Manual Therapy Treatment Soft Tissue Mobilization 2 Body Location R lateral HS Mobilization Type Myofascial Release Intensity/Depth Moderate Joint Mobilizations 2 Joint R patellofemoral Direction inferior, medial, superior Grade III 1 Joint R tibiofemoral Direction AP femur on tibia Grade IV Body Position Supine PT-OP-R Modalities Start: 12/20/17 12:19 Freq: Status: Active Protocol: Document 01/09/18 15:25 RCC (Rec: 01/11/18 16:47 RCC [email or web address]) Hot Pack/Cold Pack Treatment Cold Pack Location R knee Patient Position Hooklying Treatment Duration (minutes) 10 Patient Tolerance Good PT-OP-T Assessment and Plan Start: 12/20/17 12:19 Freq: Status: Active Protocol: Document 01/09/18 15:25 RCC (Rec: 01/11/18 16:47 RCC [email or web address]) Physical Therapy Assessment Assessment Summary Assessment Pt with less swelling in her R knee today, and able to tolerate more reps with quadriceps leg extension. Pt is crystalizer tender in her R knee and stiffness in extension > flexion. Physical Therapy Plan Next Visit Focus/Plan Next Note Type Treatment Note Next Visit Plan prog. R knee strength and ROM
--- NOTE | 2018-04-29 16:19 | PT.OPDS ---
Current Diagnoses Other tear of lateral meniscus, current injury, left knee, initial encounter (01/09/18) Provider Visit Care Team Role Provider Type PHANI Soliz Family Provider Advanced Flight Data Technician Primary Care Provider Specialty: Family Practice Address: [address] [place] [address], [id number] Email: [email or web address] Kevin Fletcher MD Attending Provider Physician Specialty: Orthopedic Surgery Address: [address] [place] [address], [id number] Email: [email or web address] Visit Number Visit Number 6 Discharge Summary PT-OP-B Current Condition Start: 12/20/17 12:19 Freq: Status: Active Protocol: Document 12/18/17 14:30 RCC (Rec: 12/20/17 12:51 RCC [email or web address]) Current Condition History of Current Condition Onset Date 10/30/17 Current Complaints R knee pain History of Current Condition Pt is a 47 y/o female presenting to physical therapy with a c/o R knee pain. She is s/p R knee partial lateral meniscectomy and medial femoral condyle chondroplasty on 10/30/2017. Pt with a h/o L knee meniscectomy as well which she reports did very well after surgery. Pt reports that pain was very high for the first 2 weeks post-surgery, with difficulty weight-bearing. Pt did not work for 1.5 weeks post- surgery, used crtuches for 1 wk then bracing ([facility] hinged brace) for 2 weeks. Pt notes Ibuprofen and ice help decrease pain. Aggravating factors: prolonged standing, going down stairs, long distance ambulation, and sleeping. Pt notes that she has also had some increased R sided low back pain with longer ambulation since her surgery. Orders are for standard knee scope protocol, increase function, ROM, strength, and decrease pain and swelling. Prior Treatments and Tests MRI confirmed lateral meniscus tear of the R knee prior to surgery. Treatment Goals Patient/Caregiver Goals Decrease pain, improve strength and activity tolerance. Prior Functional Status Baseline Function- ADL's Independent Baseline Function- Mobility Independent Baseline Function- Gait community ambulation without device Current Functional Impairments (Reported) Functional Limitations- Mobility/Gait increased pain with gait and prolonged standing- no assistive device or brace being used currently PT-OP-C Subjective Start: 12/20/17 12:19 Freq: Status: Active Protocol: Document 01/09/18 15:25 RCC (Rec: 01/11/18 16:47 RCC [email or web address]) OP-PT Subjective Patient Comments Patient Comments Pt notes no locking in knee, but a little stiff today. PT-OP-D Balance Start: 12/20/17 12:19 Freq: Status: Active Protocol: Document 12/18/17 14:30 RCC (Rec: 12/20/17 12:51 RCC [email or web address]) Balance Tests Single Limb Standing Single Limb- Right 6 sec with increased pain Single Limb- Left 15 sec PT-OP-F Manual Assessment Start: 12/20/17 12:19 Freq: Status: Active Protocol: Document 12/18/17 14:30 RCC (Rec: 12/20/17 12:51 RCC [email or web address]) Manual Assessments Soft Tissue Assessment Soft Tissue Mobility Assessment TTP: R HS, adductors, quadriceps Other Manual Assessments Other Manual Assessments TTP: R knee joint line PT-OP-G Mobility & Gait Start: 12/20/17 12:19 Freq: Status: Active Protocol: Document 12/18/17 14:30 RCC (Rec: 12/20/17 12:51 RCC [email or web address]) OP Gait Assessment Gait Gait Assistance Required: Independent Assistive Devices Assistive Device None Gait Deviations General Gait Pattern Antalgic Decreased Stride Length Factors Limiting Gait Function Factors Limiting Gait Function Decreased Strength Pain Poor Balance Stair Climbing Evaluation Evaluation Level of Assist On Stairs Independent Devices Stair Climbing Assistive Devices Right Railing Technique/Endurance Stair Climbing Direction Ascend and Descend Stair Climbing Technique Step Over Step Number of Steps Climbed 4 Stair Climbing Set # Repetitions (reps) 1 Comments Stair Climbing Comments Increased genu valgus R knee and lateral trunk lean to the R, increased pain with descending. PT-OP-H Neuro Start: 12/20/17 12:19 Freq: Status: Active Protocol: Document 12/18/17 14:30 RCC (Rec: 12/20/17 12:51 RCC [email or web address]) Sensation Evaluation Gross Sensation Gross Sensation WNL PT-OP-J Posture/Palpation/Skin Start: 12/20/17 12:19 Freq: Status: Active Protocol: Document 01/07/18 15:14 RCC (Rec: 01/07/18 17:58 RCC [email or web address]) Skin Assessment Other Assessments Skin Assessment Comments mild swelling R anterior knee @ joint line. PT-OP-K Range of Motion Start: 12/20/17 12:19 Freq: Status: Active Protocol: Document 12/18/17 14:30 RCC (Rec: 12/20/17 12:51 RCC [email or web address]) Knee Goniometric Range of Motion Knee Measured in Degrees Right Patient Position Supine Flexion Active (degrees) 112 Extension Active (degrees) 5 Left Patient Position Supine Flexion Active (degrees) 125 Flexion Passive (degrees) 130 Extension Active (degrees) 0 Knee ROM Limitations Knee ROM Limitations Pain Comments lacking 5 deg. of knee extension on the R. PT-OP-L Special Tests Start: 12/20/17 12:19 Freq: Status: Active Protocol: Document 12/18/17 14:30 RCC (Rec: 12/20/17 12:51 RCC [email or web address]) Special Tests Knee Special Tests Varus- 25 Degrees Test Results negative bilaterally Varus- 0 Degrees Test Results negative bilaterally Valgus- 25 Degrees Test Results negative bilaterally Valgus- 0 Degrees Test Results negative bilaterally PT-OP-M Strength Start: 12/20/17 12:19 Freq: Status: Active Protocol: Document 12/18/17 14:30 RCC (Rec: 12/20/17 12:51 RCC [email or web address]) Hip Strength Hip Manual Muscle Testing Right Flexion (L2) 4+ Good+ External Rotation 4- Good- Internal Rotation 4 Good Left Flexion (L2) 5 Normal External Rotation 4 Good Internal Rotation 4 Good Knee Strength Knee Manual Muscle Testing Right Flexion (S2) 3+ Fair+ Extension (L3) 4+ Good+ Left Flexion (S2) 5 Normal Extension (L3) 5 Normal Ankle/Foot Strength Ankle and Foot Manual Muscle Testing Right Dorsiflexion (L4) 5 Normal Plantarflexion (S1) 4 Good Left Dorsiflexion (L4) 5 Normal Plantarflexion (S1) 4 Good PT-OP-T Assessment and Plan Start: 12/20/17 12:19 Freq: Status: Active Protocol: Document 04/29/18 16:19 RCC (Rec: 04/29/18 16:23 RCC [email or web address]) Physical Therapy Assessment Progress Towards Goals Progress Comments unable to perform objective measures, as pt did not return or scheduled further PT sessions beyond January 09, 2018. Assessment Summary Assessment Pt overall attended 6 total physical therapy sessions. She had episodes of improvement with ROM and exercise tolerance but still had occasional swelling which seemed to increase her pain. Pt did not complete the most recent plan of care, and will be discharged at this time. If pain persists and/or worsens, recommend return to MD and potential return to PT if medically necessary. Physical Therapy Plan Discharge Physical Therapy Discharge Reasons No Longer Attending PT Discharge Comments pt did not complete most recent plan of care
== END 2018-09-02 10:17 ==
LOC: PHYS 14:30
PROVIDERS: Family Provider Internal Medicine; PCP Internal Medicine; Visit Provider Orthopaedic Surgery
DX: S83.282A Other tear of lateral meniscus, current injury, left knee, initial encounter (principal)
CPT/HCPCS: 97010; 97014; 97035; 97110; 97140; 97162; G0283

== ENCOUNTER → 2018-02-24 07:00 | Outpatient (CLI) | payer OTHER, SELFPAY | PROVIDERS: Family Provider Internal Medicine; PCP Internal Medicine | DX: Z23 Encounter for immunization (principal) | CPT/HCPCS: 90471; 90686 ==

== ENCOUNTER → 2018-09-23 | Outpatient (REF) | payer OTHER, SELFPAY | LOC: LAB 07:15 | PROVIDERS: Family Provider Internal Medicine; PCP Internal Medicine; Visit Provider Internal Medicine ==

== ENCOUNTER → 2018-10-08 13:04 | Outpatient (CLI) | payer OTHER, SELFPAY ==
--- NOTE | 2018-10-08 | DI.MG.S_ITS ---
BILATERAL DIGITAL DIAGNOSTIC MAMMOGRAM 3D/2D: 10/08/2018 CLINICAL: Right breast pain. Comparison is made to exams dated: 11/12/2016 mammogram - [facility], 11/05/2013 mammogram, and 09/11/2012 mammogram - [facility]. There are scattered fibroglandular elements in both breasts. No significant masses, calcifications, or other findings are seen in either breast. IMPRESSION: INCOMPLETE: NEEDS ADDITIONAL IMAGING EVALUATION There is no abnormality seen in the right breast to correspond with the pain indicated by a square marker, however, ultrasound is recommended. This exam was interpreted at Station ID: [id number]. NOTE: For mammograms, a report in lay terms will be sent to the patient. Approximately 15% of breast malignancies will not be visualized mammographically. In the management of a palpable breast mass, a negative mammogram must not discourage biopsy of a clinically suspicious lesion. SUMMARY: The recommended ultrasound is scheduled to immediately follow this examination. Electronically Signed By: Artem richards/garret:10/08/2018 14:09:57 ACR BI-RADS Category 0: Incomplete [id number]
--- NOTE | 2018-10-08 | DI.US.S_ITS ---
ULTRASOUND OF RIGHT BREAST: 10/08/2018 CLINICAL: Focal right breast pain. Comparison is made to exams dated: 10/08/2018 mammogram, 11/12/2016 mammogram - [facility], 11/05/2013 mammogram, and 09/11/2012 [facility]. Real-time ultrasound of the right breast was performed. Le scale images of the real-time examination were reviewed. No abnormalities were seen sonographically in the right breast. IMPRESSION: NEGATIVE There is no sonographic evidence of malignancy. There is no abnormality seen in the right breast to correspond with the area of clinical concern and focal pain, however, clinical followup is recommended. A 1 year screening mammogram is recommended. This exam was interpreted at Station ID: [id number]. SUMMARY: Recommend clinical follow up for persistent symptomatology. Findings and recommendations were discussed with the patient during today's visit. Electronically Signed By: Artem Barlow M.D. aty/:10/08/2018 16:10:42 letter sent: Normal Exam Ultrasound BI-RADS: 1 Negative
== END ==
PROVIDERS: Family Provider Internal Medicine; PCP Internal Medicine; Visit Provider Internal Medicine
DX: R92.8 Other abnormal and inconclusive findings on diagnostic imaging of breast (principal); N64.4 Mastodynia
CPT/HCPCS: 76642; 77066; G0279

== ENCOUNTER → 2019-03-11 16:55 | Outpatient (CLI) | payer OTHER, SELFPAY | PROVIDERS: PCP Internal Medicine | DX: Z23 Encounter for immunization (principal) | CPT/HCPCS: 90471; 90686 ==

== ENCOUNTER → 2019-12-03 14:38 | Outpatient (CLI) | payer OTHER, SELFPAY ==
--- NOTE | 2019-12-03 14:41 | DI.MG.S_ITS ---
BILATERAL DIGITAL SCREENING MAMMOGRAM 3D/2D WITH CAD: 12/03/2019 CLINICAL: Routine screening. Comparison is made to exams dated: 10/08/2018 mammogram, 11/12/2016 mammogram - [facility], and 11/05/2013 mammogram - [facility]. The tissue of both breasts is predominantly fatty. Current study was also evaluated with a Computer Aided Detection (CAD) system. No significant masses, calcifications, or other findings are seen in either breast. There has been no significant interval change. IMPRESSION: NEGATIVE There is no mammographic evidence of malignancy. A 1 year screening mammogram is recommended. This exam was interpreted at Station ID: [id number]. NOTE: For mammograms, a report in lay terms will be sent to the patient. Approximately 15% of breast malignancies will not be visualized mammographically. In the management of a palpable breast mass, a negative mammogram must not discourage biopsy of a clinically suspicious lesion. Electronically Signed By: Tracee johns/garret:12/03/2019 19:01:42 letter sent: Normal Exam ACR BI-RADS Category 1: Negative [id number]
== END ==
PROVIDERS: PCP Internal Medicine; Referring Provider Family Medicine; Visit Provider Internal Medicine
DX: Z12.31 Encounter for screening mammogram for malignant neoplasm of breast (principal)
CPT/HCPCS: 77063; 77067

== ENCOUNTER → 2020-02-22 07:11 | Outpatient (ROUT) | payer OTHER, SELFPAY | PROVIDERS: PCP Internal Medicine; Visit Provider Internal Medicine | DX: E03.9 Hypothyroidism, unspecified (principal) | CPT/HCPCS: 80053; 80061; 80076; 82150; 83690; 84436; 84439; 84443; 84479; 84481; 85025 ==

== ENCOUNTER → 2020-04-27 15:52 | Outpatient (CLI) | payer OTHER, SELFPAY | PROVIDERS: PCP Internal Medicine; Referring Provider Internal Medicine; Visit Provider Internal Medicine | DX: Z23 Encounter for immunization (principal) | CPT/HCPCS: 90471; 90686 ==

== ENCOUNTER → 2020-05-30 11:39 | Outpatient (CLI) | payer OTHER, SELFPAY ==
--- NOTE | 2020-05-30 | DI.RAD.S_ITS ---
PROCEDURE: XR THORACIC SPINE 3V INDICATIONS: NECK ,BACK THORACIC PAIN TECHNIQUE: 3 views of the thoracic spine were acquired. COMPARISON: None. FINDINGS: Bones: No fracture. Levocurvature of the lower thoracic spine, and partially visualized dextrocurvature of the lumbar spine. Multilevel degenerative endplate sclerosis and spurring. Diffuse facet arthropathy. Soft tissues: No paravertebral stripe thickening. IMPRESSION: Scoliosis Spondylitic changes as above Dictated by: Odell Couch M.D. on 05/30/2020 at 12:59 Approved by: Odell Couch M.D. on 05/30/2020 at 13:00
--- NOTE | 2020-05-30 | DI.RAD.S_ITS ---
PROCEDURE: XR LUMBAR SPINE 2-3V INDICATIONS: NECK ,BACK THORACIC PAIN TECHNIQUE: 3 views of the lumbar spine were acquired. COMPARISON: None. FINDINGS: Bones: No fracture. Multilevel degenerative endplate sclerosis and spurring. Diffuse facet arthropathy. Dextroscoliosis. Diffuse mild to moderate narrowing of the lumbar disc spaces. Soft tissues: Overlying bowel gas pattern is normal. No suspicious soft tissue calcifications. IMPRESSION: Diffuse lumbar spondylosis and dextroscoliosis. Multilevel facet arthropathy Dictated by: Odell Couch M.D. on 05/30/2020 at 12:48 Approved by: Odell Couch M.D. on 05/30/2020 at 12:49
--- NOTE | 2020-05-30 | DI.RAD.S_ITS ---
PROCEDURE: XR CERVICAL SPINE 2V OR 3V INDICATIONS: NECK ,BACK THORACIC PAIN TECHNIQUE: 3 view(s) of the cervical spine were acquired. COMPARISON: None. FINDINGS: Bones: No fracture. Straightening of the normal lordotic curvature. Multilevel degenerative endplate sclerosis and spurring. Diffuse facet arthropathy. Mild narrowing of the C5-C6 disc space. Soft tissues: No prevertebral soft tissue swelling. IMPRESSION: Cervical spondylosis most pronounced at C5-C6. Straightening of the normal lordotic curvature. Dictated by: Odell Couch M.D. on 05/30/2020 at 12:47 Approved by: Odell Couch M.D. on 05/30/2020 at 12:48
== END ==
PROVIDERS: PCP Internal Medicine; Referring Provider Internal Medicine; Visit Provider Internal Medicine
DX: M54.2 Cervicalgia (principal); M54.5 Low back pain; M54.6 Pain in thoracic spine; M47.812 Spondylosis without myelopathy or radiculopathy, cervical region; M47.814 Spondylosis without myelopathy or radiculopathy, thoracic region; M47.816 Spondylosis without myelopathy or radiculopathy, lumbar region; M41.86 Other forms of scoliosis, lumbar region
CPT/HCPCS: 72040; 72072; 72100

== ENCOUNTER → 2020-06-21 14:18 | Outpatient (CLI) | payer OTHER, SELFPAY ==
[2020-06-21] MEDS: COVID-19 VACC(MODERNA-1)/PF 100 MCG/0.5 ML VIAL IM (14:21)
== END ==
PROVIDERS: PCP Internal Medicine; Visit Provider Internal Medicine
DX: Z23 Encounter for immunization (principal)
CPT/HCPCS: 0011A; 91301

== ENCOUNTER → 2020-07-18 10:24 | Outpatient (CLI) | payer OTHER, SELFPAY ==
[2020-07-18] MEDS: COVID-19 VACC #2, MRNA(MOD) 100 MCG/0.5 ML VIAL IM (10:28)
== END ==
PROVIDERS: PCP Internal Medicine; Visit Provider Internal Medicine
DX: Z23 Encounter for immunization (principal)
CPT/HCPCS: 0012A; 91301

== ENCOUNTER → 2020-07-28 09:25 | Outpatient (ROUT) | payer OTHER, SELFPAY ==
[2020-07-31 14:43] LABS: Fecal Immunochemical Test Negative (Negative)
== END ==
PROVIDERS: PCP Internal Medicine; Visit Provider Internal Medicine
DX: Z12.11 Encounter for screening for malignant neoplasm of colon (principal)
CPT/HCPCS: 82274

== ENCOUNTER → 2020-08-18 08:20 | Outpatient (ROUT) | payer OTHER, SELFPAY | PROVIDERS: PCP Internal Medicine; Visit Provider Internal Medicine | DX: Z11.9 Encounter for screening for infectious and parasitic diseases, unspecified (principal) | CPT/HCPCS: 87177 ==

== ENCOUNTER 2020-08-23 14:30 | Outpatient (RCR) | payer OTHER, SELFPAY ==
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
--- NOTE | 2020-06-26 07:45 | PT-OP ANOTE ---
Pt DNS for today's appt, left a message regarding and reminder of NS policy, calling to cancel in advance if needed and reminder of next appt on 06/30/20.
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
--- NOTE | 2020-08-04 07:48 | PT-OP ANOTE ---
Pt does not show for appointment. PT calls number in chart without success. PT leaves message including next appointment time.
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
== END 2020-09-08 10:44 ==
LOC: PHYS 14:30
PROVIDERS: PCP Internal Medicine; Referring Provider Internal Medicine; Visit Provider Internal Medicine
DX: Z87.828 Personal history of other (healed) physical injury and trauma (principal); M54.2 Cervicalgia; M54.16 Radiculopathy, lumbar region; S06.0X0A Concussion without loss of consciousness, initial encounter
CPT/HCPCS: 97110; 97140; 97161; 97535

== ENCOUNTER → 2020-11-10 09:21 | Outpatient (ROUT) | payer OTHER, SELFPAY | PROVIDERS: PCP Internal Medicine; Visit Provider Internal Medicine Infectious Disease | DX: R68.89 Other general symptoms and signs (principal) | CPT/HCPCS: 36415; 86790 ==